=== PATIENT | male | born 1965 | race African-American/Black ===

== ENCOUNTER 2020-07-28 04:18 | Inpatient (IN) | payer OTHER ==
[2020-07-27 08:35] VITALS: BMI 31.3
[~2020-07-28 04:18] MED LIST: BACITRACIN 15 GM TUBE TOPICAL OINTMENT TP ONE; BUPIVACAINE HCL/PF 0.5% (5MG/ML) 10 ML VIAL NR ONE
[2020-07-28] MEDS ORDERED: PROPOFOL 20 ML ONE ×8 (09:29)
[2020-07-28] MEDS ORDERED: fentaNYL CITRATE 250 MCG/5 ML VIAL ONE (09:29)
[2020-07-28] MEDS ORDERED: SUCCINYLCHOLINE CHLORIDE 200 MG/10 ML SYRINGE ONE (09:30)
[2020-07-28] MEDS ORDERED: ROCURONIUM BROMIDE 50 MG/5 ML SYRINGE ONE (09:30)
[2020-07-28] MEDS ORDERED: MIDAZOLAM HCL 2 MG/2 ML SINGLE DOSE VIAL ONE (09:30)
[2020-07-28] MEDS ORDERED: LIDOCAINE HCL/PF 2% SDV 5ML VIAL ONE (09:31)
[2020-07-28] MEDS ORDERED: VANCOMYCIN 1,000 MG VIAL (RESTRICTED TO ID ONLY) ONE (09:53)
[2020-07-28] MEDS ORDERED: ceFAZolin SODIUM 1 GM VIAL ONE ×2 (09:53→21:06)
[2020-07-28] MEDS ORDERED: ceFAZolin SODIUM 1 GM VIAL IVPB ONE (10:00)
[2020-07-28] MEDS ORDERED: VANCOMYCIN 1,000 MG VIAL (RESTRICTED TO ID ONLY) IVPB ONE (10:05)
[2020-07-28] MEDS ORDERED: BACITRACIN 50,000 UNITS VIAL TP ONE ×2 (10:25→13:01)
[2020-07-28] MEDS ORDERED: DEXAMETHASONE SOD PHOSPHATE 4 MG/1 ML VIAL ONE (10:26)
[2020-07-28] MEDS ORDERED: ONDANSETRON 4 MG/2 ML VIAL ONE (10:26)
[2020-07-28] MEDS ORDERED: GLYCOPYRROLATE 0.2 MG/1 ML VIAL ONE ×2 (11:28)
[2020-07-28] MEDS ORDERED: ePHEDrine SULFATE 50 MG/1 ML AMPULE ONE (11:28)
[2020-07-28] MEDS ORDERED: NEOSTIGMINE METHYLSULFATE 0.5 MG/1 ML - 10 ML MDV ONE (11:28)
[2020-07-28] MEDS ORDERED: BACITRACIN 15 GM TUBE TOPICAL OINTMENT ONE (13:30)
[2020-07-28] MEDS ORDERED: ACETAMINOPHEN 325 MG TABLET (FP) PO PRN (14:33)
[2020-07-28] MEDS ORDERED: BISACODYL 10 MG SUPP.RECT RC PRN (14:33)
[2020-07-28] MEDS ORDERED: ONDANSETRON 4 MG/2 ML VIAL IVPUSH PRN ×3 (14:33→15:05)
--- NOTE | 2020-07-28 14:43 | OP ---
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
[2020-07-28] MEDS ORDERED: D5-1/2NS+20 MEQ KCL - 20 MEQ/1,000 ML INFUS.BAG IV SCH (14:45)
[2020-07-28] MEDS ORDERED: BACITRACIN 15 GM TUBE TOPICAL OINTMENT TP ONE (14:52)
[2020-07-28] MEDS ORDERED: DEXAMETHASONE SOD PHOSPHATE 4 MG/1 ML VIAL IVPUSH PRN (15:05)
[2020-07-28] MEDS ORDERED: PROMETHAZINE HCL 25 MG/1 ML VIAL IVPUSH PRN (15:05)
[2020-07-28] MEDS ORDERED: PROMETHAZINE HCL 25 MG/1 ML VIAL IVPB PRN (15:05)
[2020-07-28] MEDS: D5-1/2NS+20 MEQ KCL - 20 MEQ/1,000 ML INFUS.BAG IV SCH ×2 (15:10→19:33)
[2020-07-28] MEDS ORDERED: LACTATED RINGERS SOLUTION 1,000 ML IV SCH (15:15)
[2020-07-28] MEDS: HYDROmorphone *PCA* 10MG/50ML DISP.SYRIN PCA SCH ×2 (15:30→18:52)
[2020-07-28] MEDS ORDERED: diazePAM 5 MG TABLET PO SCH (16:00)
[2020-07-28 16:27] LABS: HEMATOCRIT 39.9 % (35.4-49); HEMOGLOBIN 12.9 GM/dL (11.7-16.9); MCH 28.4 pg (25.7-33.7); MCHC 32.3 g/dl (32.0-35.9); MEAN CELL VOLUME 88.2 fl (80-96); MEAN PLT VOLUME 8.4 fl (7.5-11.1); PLATELET COUNT 177 K/MM3 (134-434); RBC 4.52 M/mm3 (4.00-5.60); RDW 14.1 % (11.9-15.9); WHITE BLOOD COUNT 7.5 K/mm3 (4.0-10.0)
[2020-07-28 16:54] LABS: BLOOD UREA NITROGEN 14.5 mg/dL (7-18); CALCIUM 8.8 mg/dL (8.5-10.1); CREATININE 0.9 mg/dL (0.55-1.3); POTASSIUM 4.6 mmol/L (3.5-5.1)
[2020-07-28] MEDS ORDERED: CEFAZOLIN 1 GM/D5W 1 GM/50 ML BAG IVPB SCH (17:45)
--- NOTE | 2020-07-28 19:27 | OP ---
DATE OF OPERATION: 07/28/2020 PREOPERATIVE DIAGNOSIS: 1. L4-L5 spondylolisthesis. 2. Marked L4-L5 and L5-S1 stenosis. 3. Moderate L3-L4 greater than L2-3 stenosis. 4. Bilateral foot drop, right greater than left. PREOPERATIVE DIAGNOSIS: 1. L4-L5 spondylolisthesis. 2. Marked L4-L5 and L5-S1 stenosis. 3. Moderate L3-L4 greater than L2-3 stenosis. 4. Bilateral foot drop, right greater than left. 5. Segmental instability, L3-L4. ATTENDING SURGEON: Reese Fuentes M.D. GREEN HIDE INSPECTOR: Richard Taylor ANESTHESIA: General endotracheal anesthesia. ANESTHESIOLOGIST: Peter Mckeon M.D. ESTIMATED BLOOD LOSS: 250 mL. Wound was clean. PROCEDURES: 1. Complete bilateral L3, L4, and L5 laminectomies including medial facetectomy and foraminotomies for decompression of the thecal sac and nerve root (17200-73, 44178, 05492). 2. Bilateral partial L2 and S1 laminectomy for decompression of thecal sac and L2 and S1 nerve roots (44707, 07923). 3. Microsurgical dissection with operative microscope, microsurgical technique (63727). 4. Cable of autologous laminar spinous process bone for posterolateral fusion (28263). 5. Posterolateral fusion, L3-L4 and L4-L5, for L3-4 instability and L4-5 spondylolisthesis (47006, 73943). 6. Posterior lumbar pedicle screw fixation system placement from L3 to L5 with Primordial spine Naty 4.5 titanium system (6.5 x 45-mm screws at L3, L4, and L5 bilaterally connecting with 16-mm screws, 15-mm rods, and locking screws) (58785). 7. Intraoperative fluoroscopy for localization of pedicle screw fixation placement (63315-30). FINDINGS: 1. 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 2. Marked stenosis of L5-S1 with epidural fibrosis. 3. Segmental instability L3-L4. 4. L4-L5 spondylolisthesis. 5. Moderate stenosis, L2-L3 and L3-L4. INDICATION: The patient is a 55-year-old male who complained of back pain, lumbar radiculopathy. He had seen a neurologist earlier, which found him to have lower extremity weakness and referred for neurosurgical opinion. Presently he has back pain radiating down to bilateral lower extremities, and has bilateral dorsiflexion weakness for quite some time. Back versus leg pain is 9/10. Pain is rated as 8 on a 1-10 scale. He also has an electrical sensation going down his legs bilaterally. He was sent for ankle AFO because of bilateral foot drop by report. Because of his significant neurological symptoms and MRI findings with marked stenosis at L4-L5 and L5-S1 as well as spondylolisthesis at L4-L5, as well as moderate stenosis at L3-L4 and L2-L3, he is consented for multilevel lumbar decompression and fusion with instrumentation. Risks of surgery include but are not limited to bleeding, infection, dural tear with CSF leak, neurologic injury, increased thromboembolic risk, and other risks of general anesthesia. The patient understands his neurological function may not return because of the chronicity of his footdrop. No guarantee was given for a favorable outcome. Intraoperative SSEP and EMG as well as sphincter EMG monitored. PROCEDURE IN DETAIL: Patient was taken to operating room. He was placed in supine position. After general anesthesia was induced and appropriate monitors were placed Souza catheter was inserted. SSEP and EMG electrodes were inserted. At this point, the patient was turned over in prone position on a Haja frame. All pressure points were checked and padded. Lumbar region cleaned with alcohol and prepped with Betadine, and localization x-ray was obtained with spinal needle in place on the L4 spinous process. An approximately 5-inch incision was opened in the midline from L3 to S1. The periosteal dissection was carried out with periosteal elevator and monopolar electrocautery. Lamina bilateral exposure eventually extended up to L2 with L2 lamina exposure down to the S1 lamina exposure. The facet joint at L2- L3, L3-L4, and L4-L5 and L5-S1 were skeletonized but preserved. Neuro-localization was obtained. Even prior to any bony removal and ligament removal, the L3-L4 level was hypermobile. It was felt that with the planned L4-L5 fusion, the unstable L3-L4 level should also be fused because this was adjacent to the level of planned fusion. Interspinous ligament was removed with Leksell rongeur, and spinous process at L3, L4, L5 were resected with Leksell rongeur. This was morcellized with the bone mill for bone graft to be used later on. The lamina at L3, L4, L5 was removed by a combination of high-speed pneumatic drill, angled curette and Kerrison rongeur. The underlying ligamentum flavum was resected with angled curette and Kerrison rongeur. This portion of the procedure was performed with the use of the operative microscope, as well as illumination, magnification. Microsurgical techniques were utilized. Upon lifting up ligamentum flavum and after dissecting it free, there was a dural defect in the midline at the top of L5. It was covered with cottonoid initially. Further decompression of spinal canal was carried out with high-speed pneumatic drill angled curette and Kerrison rongeur to decompress the neural foramen at L3-L4 and L4-L5 and L5-S1. A partial bilateral L2 and S1 laminectomy was also carried out. A moderate epidural fibrosis was noted at L5-S1. The dura was tethered to ligamentum flavum. The thecal sac was decompressed down below as well at L5-S1. Bilateral foraminotomy was carried out with the angled curette and Kerrison rongeur. After decompression was completed, primary closure of the dural opening at L5 was carried out with 6-0 Prolene suture. The wound was intermittently irrigated with antibiotics and irrigation. At this point, the microscope was removed out of the way, and the entry point of the pedicle screws were marked with high-speed pneumatic drill. The fluoroscope was first brought in to the AP position to check the true AP position of the patient. He was then turned over in the lateral position. He was draped sterilely. Entry points of pedicle screws were marked with high-speed pneumatic drill, and a hand-held awl was used to create a path for the pedicle screw with a medial angle of about 8 to 10 degrees. The screw holes were then tapped, and 6.5 x 45 mm screw used at L3 and L4 and L5 bilaterally. Fairly solid bone consistency was encountered. The pedicle screw EMG threshold was 20 mA bilateral L3, L4, and left L5, and right L5 pedicle screw threshold was stimulation threshold of 18 mA. The 60-mm rods were loaded on top of the screws and locked down with locking screws. The screws were slightly compressed at the L3-L4 level. Torque wrench and counter- torque wrench were used in final tightening. Epidural hemostasis was obtained with use of bipolar cautery. The posterolateral surface of the spine was decorticated with high-speed pneumatic drill and was then packed with autologous and morcellized bone graft and bone dust which was harvested earlier on during decompression. SSEP and EMG signals remained stable throughout. At this point, the wound was irrigated. A Valsalva maneuver was performed, and there was no significant CSF noted. In summary, significant stenosis was noted at L4-L5 and L5-S1, and moderate stenosis was noted to L3-L4 and L2-L3. This necessitated medial facetectomy and foraminotomy and decompression be performed at L2, L3, L4, L5 and S1. Hemostasis was obtained with bipolar electrocautery at this time. A piece of Duragen was laid in the midline near the dural repair/closure. A thin layer of DuraSeal was laid on top of the Duragen. A number 10 flat NATHAN drain was left in the epidural/subfascial space, which came out through a separate stab incision on left side left side caudally. Dorsal lumbar musculature was then approximated with 0 Vicryl suture after wound was irrigated . Dorsal lumbar fascia was closed with 0 Vicryl suture, and subcutaneous fascia was closed with 3-0 Vicryl suture. Skin was closed with 4-0 Monocryl suture. Steri-Strips and sterile occlusive dressing was applied. The patient tolerated the procedure well, was turned back to supine position and extubated. He was found to move bilateral upper and lower extremities, as he did preoperatively. All needle and lap counts correct. OR timeout procedure was followed. The patient received 1 dose of 1 g of vancomycin and 2 g Ancef. The patient was examined. The patient's condition as well as intraoperative findings were communicated, per patient's request, by telephone. Ritesh [id number] MTDD
[2020-07-28] MEDS ORDERED: DEXTROSE 5%-WATER - 50 ML IVPB ONE (21:07)
[2020-07-28] MEDS: CEFAZOLIN 1 GM in DEXTROSE 5%-WATER - 50 ML IVPB SCH (21:49)
[2020-07-28] MEDS: LATANOPROST 0.005% OPHTH SOLN 2.5ML BOTTLE OU SCH (21:49)
[2020-07-28] MEDS: DOCUSATE SODIUM 100 MG CAPSULE (FP) PO SCH (21:50)
[2020-07-28] MEDS: diazePAM 5 MG TABLET PO SCH (21:50)
[2020-07-28] MEDS: BRIMONIDINE TARTRATE 0.2% OPHTHALMIC 5 ML BOTTLE OU SCH (22:00)
[2020-07-28] MEDS ORDERED: PATIENT'S OWN MEDICATION (NON-FORMULARY) (Brimonidine Tartrate/Timolol [Combigan 0.2%-0.5% NR SCH (22:00)
[2020-07-28] MEDS: TIMOLOL 0.5% OPHTHALMIC SOL 5 ML BOTTLE OU SCH (22:00)
[2020-07-28] MEDS ORDERED: PATIENT'S OWN MEDICATION (NON-FORMULARY) (Bimatoprost [Lumigan] 1 DROP) NR SCH (22:00)
--- NOTE | 2020-07-28 23:19 | PN ---
Progress Note (short form) - Note Progress Note: NEUROSURGERY Pt seen in PACU at ~1530 Incisional pain No other complaint AF, VSS PE: General- normal CN- intact; Motor- B DF weakness as pre-op; Sensation- intact to LT Dressing dry Drain- 30 cc Labs OK, glucose 120 CERTIFIED MEDICAL ASST for pain Valium for muscle relaxation Incentive spirometry Cont Souza Bedrest for at least 24 hours, HOB flat, side to side OK Findings d/w pt and Marycarmen (per pt request by phone)
[2020-07-29] MEDS ORDERED: DEXTROSE 5%-WATER - 50 ML IVPB ONE ×4 (01:06→21:05)
[2020-07-29] MEDS ORDERED: ceFAZolin SODIUM 1 GM VIAL ONE ×4 (01:06→21:04)
[2020-07-29] MEDS: CEFAZOLIN 1 GM in DEXTROSE 5%-WATER - 50 ML IVPB SCH ×4 (01:41→21:43)
[2020-07-29] MEDS: DOCUSATE SODIUM 100 MG CAPSULE (FP) PO SCH ×3 (06:13→21:45)
[2020-07-29] MEDS: diazePAM 5 MG TABLET PO SCH ×3 (06:13→21:45)
[2020-07-29] MEDS: TIMOLOL 0.5% OPHTHALMIC SOL 5 ML BOTTLE OU SCH ×2 (09:42→21:48)
[2020-07-29] MEDS: BRIMONIDINE TARTRATE 0.2% OPHTHALMIC 5 ML BOTTLE OU SCH ×2 (09:42→21:47)
--- NOTE | 2020-07-29 10:22 | PN ---
Progress Note (short form) - Note Progress Note: NEUROSURGERY POD #1 Tmax 98.87, VSS< O2 sat 95% Incisional pain No other complaint Sitting up in bed PE: General- normal CN- intact; Motor- B DF weakness as pre-op; Sensation- intact to LT Dressing with moderate serosangrenous drainage; cleaned and changed Drain- 60cc +50cc =110 cc Labs OK ARTS MANAGER for pain Valium for muscle relaxation Incentive spirometry Cont Souza Bedrest for at least 24 hours, HOB flat, side to side OK- reinforced with pt and RN Findings d/w pt
[2020-07-29] MEDS: D5-1/2NS+20 MEQ KCL - 20 MEQ/1,000 ML INFUS.BAG IV SCH (14:15)
--- NOTE | 2020-07-29 15:52 | PN ---
Progress Note (short form) - Note Progress Note: 55M POD1 s/p L3-5 decompression and fusion under GA-ETT with dilaudid MOLD PRESS OPERATOR for post operative pain. Pt states pain is moderately well controlled and requests to continue MOLD PRESS OPERATOR at this time. Will follow.
[2020-07-29] MEDS ORDERED: PCA PUMP NR ONE ×2 (18:29→21:21)
[2020-07-29] MEDS ORDERED: PT OWN MED DRAWER 7, Y5N ONE (21:04)
[2020-07-29] MEDS: LATANOPROST 0.005% OPHTH SOLN 2.5ML BOTTLE OU SCH (21:46)
[2020-07-30] MEDS: D5-1/2NS+20 MEQ KCL - 20 MEQ/1,000 ML INFUS.BAG IV SCH (01:33)
[2020-07-30] MEDS ORDERED: ceFAZolin SODIUM 1 GM VIAL ONE ×4 (02:06→20:34)
[2020-07-30] MEDS ORDERED: DEXTROSE 5%-WATER - 50 ML IVPB ONE ×4 (02:06→20:35)
[2020-07-30] MEDS: CEFAZOLIN 1 GM in DEXTROSE 5%-WATER - 50 ML IVPB SCH ×4 (02:09→20:41)
[2020-07-30] MEDS: diazePAM 5 MG TABLET PO SCH ×3 (06:37→22:36)
[2020-07-30] MEDS: DOCUSATE SODIUM 100 MG CAPSULE (FP) PO SCH ×3 (06:37→22:36)
[2020-07-30] MEDS: BRIMONIDINE TARTRATE 0.2% OPHTHALMIC 5 ML BOTTLE OU SCH (10:14)
--- NOTE | 2020-07-30 11:03 | PN ---
Progress Note (short form) - Note Progress Note: NEUROSURGERY POD #1 Tmax 99, VSS Incisional pain No other complaint PE: General- normal, no sign of DVT CN- intact; Motor- B DF weakness improved, R side 3, L side 2-3; Sensation- intact to LT Dressing with mild serosangrenous drainage on bottom; cleaned and changed Drain- 30cc - removed LS spine x-rays- ileus. implants in satisfactory positions d/c COGNOS BI ADMINISTRATOR Valium for muscle relaxation Incentive spirometry d/c Souza Monitor wound OOB with LSO brace Care d/w pt
--- NOTE | 2020-07-30 11:09 | PN ---
Progress Note (short form) - Note Progress Note: Post op day#2.Patient stable and c/o pain score of 6-7/10 on movement.So will continue SUPERVISOR DIAGNOSTIC today and will f/u tomorrow.
[2020-07-30] MEDS ORDERED: PCA PUMP NR ONE (11:47)
[2020-07-30] MEDS: TIMOLOL 0.5% OPHTHALMIC SOL 5 ML BOTTLE OU SCH ×2 (12:32→22:34)
[2020-07-30] MEDS: oxyCODONE HCL 5 MG TABLET PO PRN (20:41)
[2020-07-30] MEDS: LATANOPROST 0.005% OPHTH SOLN 2.5ML BOTTLE OU SCH (22:34)
[2020-07-31] MEDS: BRIMONIDINE TARTRATE 0.2% OPHTHALMIC 5 ML BOTTLE OU SCH ×3 (00:05→21:49)
[2020-07-31] MEDS ORDERED: ceFAZolin SODIUM 1 GM VIAL ONE ×4 (02:17→21:43)
[2020-07-31] MEDS ORDERED: DEXTROSE 5%-WATER - 50 ML IVPB ONE ×4 (02:17→21:44)
[2020-07-31] MEDS: CEFAZOLIN 1 GM in DEXTROSE 5%-WATER - 50 ML IVPB SCH ×4 (02:23→21:48)
[2020-07-31] MEDS: diazePAM 5 MG TABLET PO SCH ×3 (05:40→21:47)
[2020-07-31] MEDS: DOCUSATE SODIUM 100 MG CAPSULE (FP) PO SCH ×3 (05:41→21:47)
--- NOTE | 2020-07-31 08:47 | PN ---
Progress Note (short form) - Note Progress Note: NEUROSURGERY POD #3 Tmax 99.5, VSS Incisional pain Voiding well since Souza out Not using prn meds, protocol d/w pt No other complaint PE: General- normal, no sign of DVT CN- intact; Motor- B DF weakness improved, R side 3, L side 2-3; Sensation- intact to LT Dressing with minimal serosangrenous drainage from old drain site; cleaned and changed LS spine x-rays- ileus. implants in satisfactory positions On Oxycodone prn Valium for muscle relaxation Incentive spirometry Monitor wound OOB with LSO brace Cont ancef for now Encouraged incentive spirometry Decadron x1 for inflammation Care d/w pt
[2020-07-31] MEDS: TIMOLOL 0.5% OPHTHALMIC SOL 5 ML BOTTLE OU SCH ×2 (09:52→21:49)
[2020-07-31] MEDS ORDERED: DEXAMETHASONE SOD PHOSPHATE 4 MG/1 ML VIAL IVPUSH ONE (10:30)
[2020-07-31] MEDS: oxyCODONE HCL 5 MG TABLET PO PRN (11:10)
--- NOTE | 2020-07-31 19:00 | PN ---
Progress Note (short form) - Note Progress Note: 55M s/p bilateral L3,4,5 laminectomies, partial B L2 and S1 laminectomies, posterolateral fusion L3-4 and L4-5, B L3-4-5 pedicle screw fixation system placement, fluoroscopy, microdissesction, autologous laminar and spinous process bone harvest Operative Date: 07/28/20 for Pre-Operative Diagnosis: L4-5 spondylolithesis, L3-4 instbaility, marked stenosis L4-5 and L5-S1, moderate stenosis L3-4 > L2-3. MANAGER RETAIL SALES D/C'd. OOB to chair. Taking PO without side effects. Vital Signs Temp 98.5 F 07/31/20 17:00 Pulse 76 07/31/20 17:00 Resp 20 07/31/20 17:00 BP 142/81 07/31/20 17:00 Pulse Ox 98 07/31/20 17:00 Intake & Output 07/30/20 07/31/20 07/31/20 23:59 11:59 23:59 Intake Total 1192 350 Output Total 450 1600 Balance 742 -1250 Intake: IV 726 D5-1/2NS+20 MEQ KCL - 20 600 meq In 1,000 ml @ 100 mls /hr IV ASDIR RITA Rx#: [id number] D5-1/2NS+20 MEQ KCL - 20 126 meq In 1,000 ml @ 42 mls/ hr IV ASDIR RITA Rx#: [id number] IVPB 116 100 Oral 350 250 Output: Urine 450 1600 Souza 450 Void 1600 Other: Voiding Method Urinal Urinal Urinal # Unmeasured Voids Void 3 Bowel Movement No No - Pain managed with current regimen - Call with questions or for worsening pain
[2020-07-31] MEDS: LATANOPROST 0.005% OPHTH SOLN 2.5ML BOTTLE OU SCH (21:48)
[2020-08-01] MEDS ORDERED: DEXTROSE 5%-WATER - 50 ML IVPB ONE (01:58)
[2020-08-01] MEDS ORDERED: ceFAZolin SODIUM 1 GM VIAL ONE (01:58)
[2020-08-01] MEDS: CEFAZOLIN 1 GM in DEXTROSE 5%-WATER - 50 ML IVPB SCH ×2 (02:00→05:53)
[2020-08-01] MEDS: DOCUSATE SODIUM 100 MG CAPSULE (FP) PO SCH ×3 (05:56→21:48)
[2020-08-01] MEDS: diazePAM 5 MG TABLET PO SCH ×3 (05:56→21:48)
[2020-08-01] MEDS: oxyCODONE HCL 5 MG TABLET PO PRN ×3 (06:00→21:52)
--- NOTE | 2020-08-01 10:47 | PN ---
Progress Note (short form) - Note Progress Note: NEUROSURGERY POD #4 Tmax 98.7, VSS Incisional pain better Voiding well since Souza out No other complaint PE: General- normal, no sign of DVT CN- intact; Motor- B DF weakness improved, R side 3, L side 2-3; Sensation- intact to LT Dressing with minimal serosangrenous drainage from old drain site; cleaned and changed LS spine x-rays- ileus. implants in satisfactory positions On Oxycodone prn Valium for muscle relaxation Incentive spirometry Monitor wound OOB with LSO brace d/c ancef Encouraged incentive spirometry Plan d/c home tomorrow Care d/w pt
[2020-08-01] MEDS: TIMOLOL 0.5% OPHTHALMIC SOL 5 ML BOTTLE OU SCH ×2 (11:10→21:49)
[2020-08-01] MEDS: BRIMONIDINE TARTRATE 0.2% OPHTHALMIC 5 ML BOTTLE OU SCH ×2 (11:10→21:49)
[2020-08-01] MEDS: LATANOPROST 0.005% OPHTH SOLN 2.5ML BOTTLE OU SCH (21:49)
[2020-08-02] MEDS: oxyCODONE HCL 5 MG TABLET PO PRN (05:29)
[2020-08-02] MEDS: DOCUSATE SODIUM 100 MG CAPSULE (FP) PO SCH ×2 (05:29→13:46)
[2020-08-02] MEDS: diazePAM 5 MG TABLET PO SCH ×2 (05:29→13:46)
[2020-08-02] MEDS: BRIMONIDINE TARTRATE 0.2% OPHTHALMIC 5 ML BOTTLE OU SCH (09:32)
[2020-08-02] MEDS: TIMOLOL 0.5% OPHTHALMIC SOL 5 ML BOTTLE OU SCH (09:34)
--- NOTE | 2020-08-02 10:38 | PN ---
Progress Note (short form) - Note Progress Note: NEUROSURGERY POD #5 Tmax 99.1, VSS Incisional pain better Walking with brace on No other complaint PE: General- normal, no sign of DVT CN- intact; Motor- B DF weakness improved, R side 3, L side 2-3; Sensation- intact to LT Dressing with no drainage LS spine x-rays- ileus. implants in satisfactory positions On Oxycodone prn Incentive spirometry Monitor wound OOB with LSO brace Encouraged incentive spirometry Bowel regimen, add mag citrate [facility] pharmacy not open though informed yesterday by pharmacy by phone that they were open till 4 pm eRx resent D/c home Pain meds eRX sent yesterday and advised pt to have family picker tender rx yesterday Care d/w pt
[2020-08-02] MEDS ORDERED: MAGNESIUM CITRATE 300 ML BOTTLE PO ONE (11:50)
[2020-08-02 14:53] VITALS: BP 124/58; PULSE 77; TEMP 99.6
--- NOTE | 2020-08-17 14:35 | SURG ---
Surgery Pharmaceutical Process Engineer Note Pharmaceutical Process Engineer: Sarah Dailey PA-C Date of Service: 07/28/20 Diagnosis: L4-L5 splondylolithesis marked L4-L5 and L5-S1 stenosis Moderate L3-L4 greater than L2-L3 stenosis Bilateral foot drop, right greater than left Procedure: Complete B L3,4,5 laminectomies, partial B L2 and S1 laminectomies, posterolateral fusion L3-4 and L4-5, B L3-4-5 pedicle screw fixation system placement, fluoroscopy, microdissesction, autologous laminar and spinous process bone harvest I was present for the entirety of the operative procedure. For further detail, please refer to operative report. Visit type - Case Type Case Type: Scheduled - Emergency Emergency Visit: No - New patient This patient is new to me today: Yes Date on this admission: 07/28/20
== END 2020-08-02 17:00 | disposition home health service (06) | DRG 460 ==
LOC: J2C 04:18 → J8W 18:45
PROVIDERS: ADMIT Neurological Surgery; ATTEND Neurological Surgery
PROC: 01NB0ZZ Release Lumbar Nerve, Open Approach (ICD-10-PCS; 2020-07-28)
PROC: 00U20KZ Supplement Dura Mater with Nonautologous Tissue Substitute, Open Approach (ICD-10-PCS; 2020-07-28)
PROC: B01BZZZ Fluoroscopy of Spinal Cord (ICD-10-PCS; 2020-07-28)
PROC: 4A11X4G Monitoring of Peripheral Nervous Electrical Activity, Intraoperative, External Approach (ICD-10-PCS; 2020-07-28)
PROC: 0SG1071 Fusion of 2 or more Lumbar Vertebral Joints with Autologous Tissue Substitute, Posterior Approach, Posterior Column, Open Approach (ICD-10-PCS; principal; 2020-07-28 09:00)
DX: M48.07 Spinal stenosis, lumbosacral region (principal); G96.11 Dural tear; M43.16 Spondylolisthesis, lumbar region; M21.372 Foot drop, left foot; M21.371 Foot drop, right foot; M53.2X7 Spinal instabilities, lumbosacral region
CPT/HCPCS: 36415; 72100-TC-FY; 76000-TC-FY; 80048; 85027; 86850; 86900; 86901; 86922; 94010; 94760; 97116-GP; 97162-GP

== ENCOUNTER 2021-08-31 04:16 | Inpatient (IN) | payer OTHER ==
[2021-08-30 13:04] VITALS: BMI 30.5
[2021-08-31] MEDS ORDERED: BUPIVACAINE HCL/PF 0.5% (5MG/ML) 10 ML VIAL ONE ×2 (07:36)
[2021-08-31] MEDS ORDERED: THROMBIN (BOVINE) 5,000 UNIT VIAL TP ONE ×2 (07:36→09:00)
[2021-08-31] MEDS ORDERED: VANCOMYCIN 1,000 MG VIAL (RESTRICTED TO ID ONLY) ONE (08:17)
[2021-08-31] MEDS ORDERED: DEXMEDETOMIDINE HCL 200 MCG/2 ML IVPB ONE (08:21)
[2021-08-31] MEDS ORDERED: PROPOFOL 20 ML ONE ×15 (08:22→15:00)
[2021-08-31] MEDS ORDERED: MIDAZOLAM HCL 2 MG/2 ML SINGLE DOSE VIAL ONE ×2 (08:22)
[2021-08-31] MEDS ORDERED: HYDROmorphone HCl 2 MG/ML VIAL ONE (08:23)
[2021-08-31] MEDS ORDERED: KETAMINE HCL 200 MG/20 ML VIAL ONE (08:23)
[2021-08-31] MEDS ORDERED: ONDANSETRON 4 MG/2 ML VIAL IVPUSH PRN ×2 (08:32→12:38)
[2021-08-31] MEDS ORDERED: ROCURONIUM BROMIDE 50 MG/5 ML SYRINGE ONE (08:39)
[2021-08-31] MEDS ORDERED: LACTATED RINGERS SOLUTION 1,000 ML IV SCH (08:45)
[2021-08-31] MEDS ORDERED: ceFAZolin 2 GRAM PREMIX BAG IVPB ONE (08:50)
[2021-08-31] MEDS ORDERED: BISACODYL 10 MG SUPP.RECT RC PRN (12:38)
[2021-08-31] MEDS ORDERED: HYDROmorphone *PCA* 10MG/50ML DISP.SYRIN ONE (13:21)
[2021-08-31] MEDS: HYDROmorphone *PCA* 10MG/50ML DISP.SYRIN PCA SCH (13:30)
[2021-08-31] MEDS: DOCUSATE SODIUM 100 MG CAPSULE (FP) PO SCH ×2 (14:00→21:14)
[2021-08-31] MEDS: D5-1/2NS+20 MEQ KCL - 20 MEQ/1,000 ML INFUS.BAG IV SCH (14:00)
[2021-08-31] MEDS: diazePAM 5 MG TABLET PO SCH ×2 (14:00→21:14)
[2021-08-31 14:31] LABS: HEMATOCRIT 43.1 % (35.4-49); HEMOGLOBIN 14.3 GM/dL (11.7-16.9); MCH 29.3 pg (25.7-33.7); MCHC 33.2 g/dl (32.0-35.9); MEAN CELL VOLUME 88.4 fl (80-96); MEAN PLT VOLUME 8.9 fl (7.5-11.1); PLATELET COUNT 186 10^3/uL (134-434); RBC 4.87 M/mm3 (4.00-5.60); RDW 14.7 % (11.9-15.9); WHITE BLOOD COUNT 4.1 K/mm3 (4.0-10.0)
[2021-08-31 14:55] LABS: CALCIUM 8.9 mg/dL (8.5-10.1)
[2021-08-31] MEDS ORDERED: ceFAZolin SODIUM 1 GM VIAL ONE (17:03)
[2021-08-31] MEDS: BRIMONIDINE TARTRATE 0.2% OPHTHALMIC 5 ML BOTTLE OU SCH (21:44)
[2021-08-31] MEDS: TIMOLOL 0.5% OPHTHALMIC SOL 5 ML BOTTLE OU SCH (21:46)
[2021-08-31] MEDS: LATANOPROST 0.005% OPHTH SOLN 2.5ML BOTTLE OU SCH (21:46)
[2021-08-31] MEDS ORDERED: PATIENT'S OWN MEDICATION (NON-FORMULARY) (Brimonidine Tartrate/Timolol [Combigan 0.2%-0.5% OU SCH (22:00)
[2021-08-31] MEDS ORDERED: PT OWN MED DRAWER 7, Y5N ONE (22:21)
[2021-09-01] MEDS: D5-1/2NS+20 MEQ KCL - 20 MEQ/1,000 ML INFUS.BAG IV SCH ×2 (01:00→11:31)
[2021-09-01] MEDS: CEFAZOLIN 1 GM/D5W 1 GM/50 ML BAG IVPB SCH ×2 (02:00→08:54)
[2021-09-01] MEDS: diazePAM 5 MG TABLET PO SCH ×3 (06:32→21:03)
[2021-09-01] MEDS: DOCUSATE SODIUM 100 MG CAPSULE (FP) PO SCH ×3 (06:32→21:02)
[2021-09-01] MEDS ORDERED: DEXTROSE 5%-WATER - 50 ML IVPB ONE ×2 (10:29→17:48)
[2021-09-01] MEDS ORDERED: ceFAZolin SODIUM 1 GM VIAL ONE ×2 (10:29→17:48)
[2021-09-01] MEDS ORDERED: PCA PUMP NR ONE (10:29)
[2021-09-01] MEDS: CEFAZOLIN 1 GM in DEXTROSE 5%-WATER - 50 ML IVPB SCH ×2 (10:33→18:26)
[2021-09-01] MEDS: BRIMONIDINE TARTRATE 0.2% OPHTHALMIC 5 ML BOTTLE OU SCH ×2 (10:33→21:05)
[2021-09-01] MEDS: TIMOLOL 0.5% OPHTHALMIC SOL 5 ML BOTTLE OU SCH ×2 (10:34→21:05)
[2021-09-01] MEDS: HYDROmorphone *PCA* 10MG/50ML DISP.SYRIN PCA SCH (11:30)
[2021-09-01] MEDS: LATANOPROST 0.005% OPHTH SOLN 2.5ML BOTTLE OU SCH (22:00)
[2021-09-02] MEDS: D5-1/2NS+20 MEQ KCL - 20 MEQ/1,000 ML INFUS.BAG IV SCH ×2 (01:02→14:56)
[2021-09-02] MEDS ORDERED: ceFAZolin SODIUM 1 GM VIAL ONE ×3 (01:05→17:05)
[2021-09-02] MEDS ORDERED: DEXTROSE 5%-WATER - 50 ML IVPB ONE ×3 (01:06→17:05)
[2021-09-02] MEDS: CEFAZOLIN 1 GM in DEXTROSE 5%-WATER - 50 ML IVPB SCH ×3 (01:06→18:05)
[2021-09-02] MEDS: diazePAM 5 MG TABLET PO SCH ×3 (06:11→22:08)
[2021-09-02] MEDS: DOCUSATE SODIUM 100 MG CAPSULE (FP) PO SCH ×3 (06:11→22:08)
[2021-09-02] MEDS: ACETAMINOPHEN 325 MG TABLET (FP) PO PRN ×2 (06:18→22:08)
[2021-09-02] MEDS: TIMOLOL 0.5% OPHTHALMIC SOL 5 ML BOTTLE OU SCH ×2 (09:01→22:09)
[2021-09-02] MEDS: HYDROmorphone *PCA* 10MG/50ML DISP.SYRIN PCA SCH (09:01)
[2021-09-02] MEDS: BRIMONIDINE TARTRATE 0.2% OPHTHALMIC 5 ML BOTTLE OU SCH ×2 (09:01→22:08)
[2021-09-02] MEDS: LATANOPROST 0.005% OPHTH SOLN 2.5ML BOTTLE OU SCH (22:09)
[2021-09-03] MEDS ORDERED: ceFAZolin SODIUM 1 GM VIAL ONE ×3 (00:53→17:31)
[2021-09-03] MEDS ORDERED: DEXTROSE 5%-WATER - 50 ML IVPB ONE ×3 (00:54→17:31)
[2021-09-03] MEDS: CEFAZOLIN 1 GM in DEXTROSE 5%-WATER - 50 ML IVPB SCH ×3 (01:11→17:33)
[2021-09-03] MEDS: D5-1/2NS+20 MEQ KCL - 20 MEQ/1,000 ML INFUS.BAG IV SCH ×2 (01:13→14:26)
[2021-09-03] MEDS ORDERED: PCA PUMP NR ONE (05:19)
[2021-09-03] MEDS: diazePAM 5 MG TABLET PO SCH ×3 (06:02→21:54)
[2021-09-03] MEDS: DOCUSATE SODIUM 100 MG CAPSULE (FP) PO SCH ×3 (06:02→21:54)
[2021-09-03] MEDS: BRIMONIDINE TARTRATE 0.2% OPHTHALMIC 5 ML BOTTLE OU SCH ×2 (09:46→21:58)
[2021-09-03] MEDS: TIMOLOL 0.5% OPHTHALMIC SOL 5 ML BOTTLE OU SCH ×2 (09:47→21:57)
[2021-09-03] MEDS: LATANOPROST 0.005% OPHTH SOLN 2.5ML BOTTLE OU SCH (21:57)
[2021-09-04] MEDS ORDERED: ceFAZolin SODIUM 1 GM VIAL ONE ×2 (00:28→09:11)
[2021-09-04] MEDS ORDERED: DEXTROSE 5%-WATER - 50 ML IVPB ONE (00:28)
[2021-09-04] MEDS: CEFAZOLIN 1 GM in DEXTROSE 5%-WATER - 50 ML IVPB SCH ×2 (01:38→09:13)
[2021-09-04] MEDS: D5-1/2NS+20 MEQ KCL - 20 MEQ/1,000 ML INFUS.BAG IV SCH (01:38)
[2021-09-04] MEDS: DOCUSATE SODIUM 100 MG CAPSULE (FP) PO SCH ×3 (06:22→21:14)
[2021-09-04] MEDS: diazePAM 5 MG TABLET PO SCH ×3 (06:22→21:14)
[2021-09-04] MEDS: BRIMONIDINE TARTRATE 0.2% OPHTHALMIC 5 ML BOTTLE OU SCH ×2 (09:13→21:14)
[2021-09-04] MEDS: TIMOLOL 0.5% OPHTHALMIC SOL 5 ML BOTTLE OU SCH ×2 (09:13→21:15)
[2021-09-04] MEDS ORDERED: MAGNESIUM CITRATE 300 ML BOTTLE PO ONE (10:26)
[2021-09-04] MEDS ORDERED: oxyCODONE HCL 5 MG TABLET PO PRN (10:28)
[2021-09-04] MEDS ORDERED: PCA PUMP NR ONE (10:31)
[2021-09-04 10:50] LABS: BASO % 0.5 % (0-2.0); EOS % 4.7 % (0-4.5); HEMOGLOBIN 13.4 GM/dL (11.7-16.9); LYMPH % 16.7 % (8-40); MCH 29.3 pg (25.7-33.7); MCHC 33.6 g/dl (32.0-35.9); MEAN CELL VOLUME 87.1 fl (80-96); MONO % 13.6 % (3.8-10.2); NEUT % 64.5 % (42.8-82.8); PLATELET COUNT 210 10^3/uL (134-434); RDW 14.5 % (11.9-15.9); WHITE BLOOD COUNT 6.8 K/mm3 (4.0-10.0)
[2021-09-04] MEDS: CEPHALEXIN MONOHYDRATE 500 MG CAPSULE (UD) PO SCH ×2 (12:03→17:24)
[2021-09-04] MEDS: LATANOPROST 0.005% OPHTH SOLN 2.5ML BOTTLE OU SCH (21:15)
[2021-09-05] MEDS: CEPHALEXIN MONOHYDRATE 500 MG CAPSULE (UD) PO SCH ×3 (01:00→13:14)
[2021-09-05] MEDS: diazePAM 5 MG TABLET PO SCH ×2 (05:39→13:14)
[2021-09-05] MEDS: DOCUSATE SODIUM 100 MG CAPSULE (FP) PO SCH ×2 (05:39→13:15)
[2021-09-05] MEDS: TIMOLOL 0.5% OPHTHALMIC SOL 5 ML BOTTLE OU SCH (10:32)
[2021-09-05] MEDS: BRIMONIDINE TARTRATE 0.2% OPHTHALMIC 5 ML BOTTLE OU SCH (10:32)
[2021-09-05 16:20] VITALS: BP 139/81; PULSE 88; TEMP 99.2
== END 2021-09-05 16:29 | disposition home or self-care (01) | DRG 460 ==
LOC: J2C 04:16 → J6S 17:24
PROVIDERS: ADMIT Neurological Surgery; ATTEND Neurological Surgery
PROC: 0SP004Z Removal of Internal Fixation Device from Lumbar Vertebral Joint, Open Approach (ICD-10-PCS; 2021-08-31)
PROC: 01NB0ZZ Release Lumbar Nerve, Open Approach (ICD-10-PCS; 2021-08-31)
PROC: 4A11X4G Monitoring of Peripheral Nervous Electrical Activity, Intraoperative, External Approach (ICD-10-PCS; 2021-08-31)
PROC: 0SG00J1 Fusion of Lumbar Vertebral Joint with Synthetic Substitute, Posterior Approach, Posterior Column, Open Approach (ICD-10-PCS; principal; 2021-08-31 08:00)
DX: T84.038A Mechanical loosening of other internal prosthetic joint, initial encounter (principal); M43.16 Spondylolisthesis, lumbar region; M21.371 Foot drop, right foot; M21.372 Foot drop, left foot; Y83.9 Surgical procedure, unspecified as the cause of abnormal reaction of the patient, or of later complication, without mention of misadventure at the time of the procedure
CPT/HCPCS: 36415; 72100-TC-FY; 80048; 80051; 85025; 85027; 94760; 97116-GP; 97162-GP

== ENCOUNTER 2023-10-02 11:29 | Emergency (ER) | payer OTHER ==
[2023-10-02 11:50] VITALS: BP 133/82; PULSE 74; RESP 18; TEMP 97.6; BMI 31.0
[2023-10-02] MEDS ORDERED: predniSONE 20 MG TABLET (UD) PO ONE (12:52)
[2023-10-02] MEDS ORDERED: ALBUTEROL SO4 2.5/IPRATROPIUM 0.5 INH SOL 3 ML VIAL.NEB. NEB ONE ×2 (12:52→12:54)
[2023-10-02] MEDS ORDERED: predniSONE 20 MG TABLET (UD) ONE (12:54)
== END 2023-10-02 13:57 | disposition home or self-care (01) ==
LOC: JERFT 11:29 → JER 11:29 → JERFT 13:57
PROC: 3E0F7GC Introduction of Other Therapeutic Substance into Respiratory Tract, Via Natural or Artificial Opening (ICD-10-PCS; principal; 2023-10-02)
DX: R06.02 Shortness of breath (principal); J40 Bronchitis, not specified as acute or chronic
CPT/HCPCS: 71046-TC-FY; 93005; 93010; 94640; 99284-25

== ENCOUNTER 2025-03-10 15:14 | Emergency (ER) | payer OTHER ==
[2025-03-10 15:22] VITALS: BP 176/106; RESP 22; TEMP 97.9; BMI 31.7
[2025-03-10 15:40] VITALS: PULSE 79
[2025-03-10] MEDS: ALBUTEROL SO4 2.5/IPRATROPIUM 0.5 INH SOL 3 ML VIAL.NEB. NEB SCH (15:54)
[2025-03-10] MEDS ORDERED: methylPREDNISolone NA SUCC 125 MG/2 ML VIAL ONE (16:00)
[2025-03-10] MEDS: methylPREDNISolone NA SUCC 125 MG/2 ML VIAL IVPUSH ONE (16:30)
[2025-03-10 16:34] LABS: VENOUS BASE EXCESS 2.4 mmol/L (-2-2); VENOUS O2 SATURATION 28.7 % (70-80); VENOUS PCO2 56.8 mmHg (38-52); VENOUS PH 7.336 (7.310-7.410)
[2025-03-10 16:35] LABS: BASOPHILS # 0.04 x10^3/uL (0.01-0.08); EOSINOPHIL % 11.8 % (0.8-7.0); EOSINOPHILS # 0.61 x10^3/uL (0.04-0.54); HEMATOCRIT 45.6 % (40.1-51.0); HEMOGLOBIN 14.6 g/dL (13.7-17.5); MEAN CELL VOLUME 90.1 fl (79.0-92.2); MEAN PLT VOLUME 10.6 fl (9.4-12.4); MONOCYTE # 0.55 x10^3/uL (0.30-0.82); MONOCYTE % 10.6 % (5.3-12.2); PLATELET COUNT 208 x10^3/uL (163-337); RDW 13.4 % (12.2-16.1)
[2025-03-10 16:51] LABS: INR 1.26 (0.83-1.09); PROTHROMBIN TIME (PATIENT) 13.9 SEC (9.7-13.0)
[2025-03-10 16:54] LABS: ACTIVATED PTT 36.3 SECONDS (25.2-36.5); CHLORIDE 104 mmol/L (98-107); SODIUM 133 mmol/L (136-145)
[2025-03-10 16:56] LABS: CALCIUM 9.2 mg/dL (8.5-10.1)
[2025-03-10 16:57] LABS: ALBUMIN 3.6 g/dl (3.4-5.0); BLOOD UREA NITROGEN 17.1 mg/dL (7-18); CO2 28 mmol/L (21-32); GLUCOSE,RANDOM 91 mg/dL (74-106)
[2025-03-10 16:59] LABS: CREATININE 1.1 mg/dL (0.55-1.3); SGOT/AST 89 U/L (15-37)
[2025-03-10 17:01] LABS: BILIRUBIN,TOTAL 0.3 mg/dL (0.2-1); TOT PROT 7.9 g/dl (6.4-8.2)
[2025-03-10 17:03] LABS: ALK PHOS 59 U/L (45-117)
[2025-03-10 17:14] LABS: ANION GAP 2 mmol/L (4-13); POTASSIUM 7.6 mmol/L (3.5-5.1); SGPT/ALT 46 U/L (13-61)
[2025-03-10 17:50] LABS: HCV DIAGNOSTIC IN-HOUSE W/RFLX NON-REACTIVE (NONREACTIVE); HIV INTERPRETATION NEGATIVE (NEGATIVE)
[2025-03-10] MEDS ORDERED: guaiFENesin/D-METHORPHAN HB 10 ML UNIT-DOSE CUPS ONE (17:59)
[2025-03-10] MEDS: guaiFENesin/D-METHORPHAN HB 10 ML UNIT-DOSE CUPS PO ONE (18:00)
[2025-03-10 18:26] LABS: POTASSIUM 4.1 mmol/L (3.5-5.1)
[2025-03-10 18:28] LABS: CALCIUM 9.6 mg/dL (8.5-10.1)
[2025-03-10 18:29] LABS: BLOOD UREA NITROGEN 19.6 mg/dL (7-18)
== END 2025-03-10 18:58 | disposition home or self-care (01) ==
LOC: JER 15:14
PROC: 3E033GC Introduction of Other Therapeutic Substance into Peripheral Vein, Percutaneous Approach (ICD-10-PCS; principal; 2025-03-10)
PROC: 3E0F7GC Introduction of Other Therapeutic Substance into Respiratory Tract, Via Natural or Artificial Opening (ICD-10-PCS; 2025-03-10)
DX: J45.21 Mild intermittent asthma with (acute) exacerbation (principal); R07.89 Other chest pain; R06.02 Shortness of breath
CPT/HCPCS: 0241U-QW; 36415; 71045-TC-FY; 80048; 80053; 82803; 84484; 85025; 85610; 85730; 86803; 87389; 93005; 93010; 99285-25